=== PATIENT | female | born 1980 | race Caucasian/White ===

== ENCOUNTER 2020-06-06 10:01 | Outpatient (CLI) | payer BC, SELFPAY ==
[2020-06-06 20:32] LABS: SARS-CoV-2 RNA PCR Negative
== END 2020-06-06 10:02 | disposition home or self-care (01) ==
LOC: ANHCOVIDDT 10:04
PROVIDERS: PCP Family Medicine; Visit Provider Physician Assistant Medical
DX: R07.89 Other chest pain (principal); R19.7 Diarrhea, unspecified; R68.83 Chills (without fever); Z20.822 Contact with and (suspected) exposure to COVID-19
CPT/HCPCS: C9803; U0003; U0005

== ENCOUNTER 2022-01-20 01:40 | Day surgery (SDC) | payer OTHER, SELFPAY ==
[2022-01-20 06:25] VITALS: BP 117/59; PULSE 43; RESP 16; TEMP 36.4; O2SAT 100; BMI 21.4
[2022-01-20] MEDS: LACTATED RINGERS 1,000 ML 150 ML IV CONT (06:50)
--- NOTE | 2022-01-20 07:16 | P.PNAN_ITS ---
Anes - Initial Pre Proc Eval Procedure: Operation Date: 01/20/22 07:30 Proposed Procedures p Colonoscopy - Dariel Fletcher MD Date/Time: 01/20/22 07:16 Surgeon: Dariel Fletcher MD Pre Op Diagnosis: Rectal Pain Patient Data Age: 41 Gender: F Height: 1.68 m Weight: 60.4 kg Last Vital Signs Temp 97.5 F L 01/20/22 06:25 Pulse 43 L 01/20/22 06:25 Resp 16 01/20/22 06:25 BP 117/59 L 01/20/22 06:25 Pulse Ox 100 01/20/22 06:25 O2 Del Method Room Air 01/20/22 06:25 Allergies Allergy/AdvReac Type Severity Reaction Status Date / Time No Known Allergies Allergy Verified 01/20/22 06:34 Home Medications Medication Instructions Recorded Confirmed Type cholecalciferol (vitamin D3) 100 100 mcg PO DAILY 06/13/20 01/20/22 History mcg (4,000 unit) capsule multivitamin 1 tablet PO DAILY 06/13/20 01/20/22 History ferrous sulfate 325 mg (65 mg 325 mg PO DAILY 09/04/21 01/20/22 History iron) tablet (FeroSul) glucosamine sulfate 500 mg capsule 500 mg PO BID 01/02/22 01/20/22 History melatonin 1 mg tablet 1 mg PO HS PRN Insomnia 01/02/22 01/20/22 History vit B complex with C 300 300 tablet PO 1XD 01/02/22 01/20/22 History mg-calcium carbonate 150 mg calcium tablet (B-Complex Plus Vitamin C (and calcium)) Laboratory Tests 01/20/22 06:47 Beta HCG, Quant Pending Patient hx anesthesia problems: none Family hx anesthesia problems: none Results Review: All pre-operative results and documents have been reviewed as part of the pre- operative evaluation. 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 Family History Family History Father Family history of hypercholesterolemia Hypertension Grandparent Hypertension Family history of cardiovascular disease Carcinoma of colon Mother Family history of malignant neoplasm of breast in first degree relative Social History Social History Smoking status: Never smoker Alcohol intake: current Drinks per week: 1 Substance use: former Substance use type: marijuana Living arrangements: with family Spiritual care concerns: No Anes - Eval Final PreProcedure Day of Procedure 01/20/22 07:16 Patient weight: normal Heart: regular rate and rhythm Lungs: clear to auscultation Airway: Mallampati scale class II Neurological: alert and oriented Last oral intake: >/= 8 hours ASA classification: II Emergent: no Anesthetic plan: proceed Anesthesia type and monitoring: general GIVS and standard monitoring Results Review: All pre-operative results and documents have been reviewed as part of the pre- operative evaluation. Informed Consent: The patient's anesthetic plan and its attendant risks and benefits were discussed with the patient/family/POA. Questions were solicited and answers provided to the satisfaction of the patient/family/POA.
--- NOTE | 2022-01-20 07:26 | PM.HPGS ---
History of Present Illness History of Present Illness Consent: Risks, benefits, and alternatives have been discussed and questions answered. Patient agrees to proceed with procedure. Chief complaint: Rectal Pain Narrative: Sulema Manuel is a 41 year old female with sensation of rectal pressure, never had colonoscopy Review of Systems Constitutional: Constitutional: Denies headache(s) and Denies weakness Eyes: Eyes: Denies blurry vision ENT: Reports Normal hearing present, Denies headache(s) and Denies neck pain Cardiovascular: Cardiovascular: Denies chest pain and Denies dyspnea Respiratory: Respiratory: Denies dyspnea Gastrointestinal: Gastrointestinal: Reports no additional gastrointestinal complaints Genitourinary: Genitourinary: Denies dysuria Musculoskeletal: Musculoskeletal: Denies neck pain Integumentary/Breasts: Skin/Breast: Denies dry skin Neurologic: Reports Normal hearing present, Denies headache(s) and Denies weakness Psychiatric: Psychiatric: Denies anxiety Endocrine: Endocrine: Denies change in body appearance Hematologic/Lymphatic: Hematologic/Lymphatic: Denies easy bleeding Allergic/Immunologic: Allergic/Immunologic: Denies urticaria PMFSH Past Medical History Medical History (Updated 01/20/22 @ 07:27 by Dariel Fletcher MD) Hyperparathyroidism, unspecified 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 Rectal pressure Family History Family History Father Family history of hypercholesterolemia Hypertension Grandparent Hypertension Family history of cardiovascular disease Carcinoma of colon Mother Family history of malignant neoplasm of breast in first degree relative Social History Social History Smoking status: Never smoker Alcohol intake: current Drinks per week: 1 Substance use: former Substance use type: marijuana Living arrangements: with family Spiritual care concerns: No Meds Home Medications and Allergies Home Medications Medication Instructions Recorded Confirmed Type cholecalciferol (vitamin D3) 100 100 mcg PO DAILY 06/13/20 01/20/22 History mcg (4,000 unit) capsule multivitamin 1 tablet PO DAILY 06/13/20 01/20/22 History ferrous sulfate 325 mg (65 mg 325 mg PO DAILY 09/04/21 01/20/22 History iron) tablet (FeroSul) glucosamine sulfate 500 mg capsule 500 mg PO BID 01/02/22 01/20/22 History melatonin 1 mg tablet 1 mg PO HS PRN Insomnia 01/02/22 01/20/22 History vit B complex with C 300 300 tablet PO 1XD 01/02/22 01/20/22 History mg-calcium carbonate 150 mg calcium tablet (B-Complex Plus Vitamin C (and calcium)) Allergies Allergy/AdvReac Type Severity Reaction Status Date / Time No Known Allergies Allergy Verified 01/20/22 06:34 Vital Signs Vital Signs - 24 hr 01/20/22 06:25 Temperature 97.5 F L Pulse Rate 43 L Respiratory Rate 16 Blood Pressure 117/59 L Pulse Oximetry 100 Oxygen Delivery Room Air Exam Const: General: comfortable and no acute distress HENMT: General nose exam: Normal nares present Eyes: General: appearance normal, both eyes and all related structures Neck: Neck: no JVD Resp: Auscultation: clear to auscultation bilaterally Cardio: Rate: regular rate Rhythm: regular rhythm GI: Inspection: non-distended GI Palp: Yes Soft to palpation Skin: General skin exam: normal color Neuro: General: gait normal Speech: normal speech Extrem: General: normal to inspection Psych: Mental Status: mental status grossly normal Assessment and Plan Assessment and plan (1) Rectal pressure: Code(s): R19.8 - Other specified symptoms and signs involving the digestive system and abdomen Status: Acute Assessment and Plan: colonoscopy
[2022-01-20 07:29] LABS: Beta HCG Quantitative < 2.39 mIU/ML
[2022-01-20 07:52] VITALS: BP 102/57; PULSE 54; RESP 16; O2SAT 100
[2022-01-20 08:02] VITALS: BP 104/59; PULSE 56; RESP 16; O2SAT 100
[2022-01-20 08:12] VITALS: BP 110/62; PULSE 56; RESP 16; O2SAT 100
== END 2022-01-20 08:33 | disposition home or self-care (01) ==
PROVIDERS: Anesthesiology; PCP Family Medicine; Visit Provider Internal Medicine Gastroenterology
PROC: 0DJD8ZZ Inspection of Lower Intestinal Tract, Via Natural or Artificial Opening Endoscopic (ICD-10-PCS; CPT 45378; principal; 2022-01-20 07:30)
DX: Z12.11 Encounter for screening for malignant neoplasm of colon (principal); K63.5 Polyp of colon; K62.89 Other specified diseases of anus and rectum; R19.8 Other specified symptoms and signs involving the digestive system and abdomen; E21.3 Hyperparathyroidism, unspecified; F12.90 Cannabis use, unspecified, uncomplicated
CPT/HCPCS: 45385; 36415; 84702; 88305; J2704; J7120

== ENCOUNTER 2022-03-24 17:40 | Outpatient (CLI) | payer OTHER, SELFPAY ==
[2022-03-24 18:14] LABS: Basophils Percent Auto 0.5 % (0.2-1.2); Eosinophils Absolute Auto 0.1 K/mm3 (0-0.3); Eosinophils Percent Auto 0.8 % (0-4.4); Hematocrit 41.3 % (37.0-47.0); Immature Granulocyte Absolute 0.01 K/mm3 (0.00-0.031); Immature Granulocyte Percent A 0.2 % (0-0.5); Lymphocytes Absolute Auto 2.13 K/mm3 (0.9-3.2); Mean Corpuscular HGB Conc 33.9 g/dl (32-36); Mean Corpuscular Hemoglobin 30.4 pg (26-34); Mean Corpuscular Volume 89.6 fl (80-100); Mean Platelet Volume 10.1 fl (7.4-10.4); Monocytes Absolute Auto 0.5 K/mm3 (0.1-0.6); Monocytes Percent Auto 8.7 % (2.6-8.5); Neutrophils Absolute Auto 3.3 K/mm3 (1.3-6.7); Neutrophils Percent Auto 54.8 % (45.5-73.1); Platelet Count Result 214 k/mm3 (150-375); Red Blood Count 4.61 M/mm3 (4.2-5.4); Red Cell Distribution Width 11.9 % (11.5-14.5); White Blood Count 6.1 K/mm3 (4.5-10.0)
[2022-03-24 18:28] LABS: Alanine Aminotransferase 35 U/L (6-35); Albumin Level 4.8 g/dL (3.5-5.1); Alkaline Phosphatase 42 U/L (38-126); Anion Gap 8 mmol/L (8-16); Aspartate Amino Transferase 36 U/L (14-36); Bilirubin,Total 0.4 mg/dL (0.2-1.3); Blood Urea Nitrogen 14 mg/dL (7-17); Calcium 9.2 mg/dL (8.4-10.2); Carbon Dioxide 30 mmol/L (22-30); Chloride 100 mmol/L (98-107); Cholesterol 206 mg/dL (0-200); Estimated Glomerular Filt Rate > 60; Glucose 92 mg/dL (65-110); HDL Direct 97 mg/dL; Potassium 3.9 mmol/L (3.4-5.0); Sodium 138 mmol/L (137-145); Triglycerides 59 mg/dL (<150)
[2022-03-24 18:39] LABS: LDL Cholesterol Direct 77 mg/dL
[2022-03-24 18:43] LABS: Vitamin D 25 Hydroxy 46.3 ng/mL
== END 2022-03-24 17:41 | disposition home or self-care (01) ==
LOC: ANHLAB 17:42
PROVIDERS: PCP Family Medicine; Visit Provider Nurse Practitioner Family
DX: Z01.818 Encounter for other preprocedural examination (principal); Z13.220 Encounter for screening for lipoid disorders; E55.9 Vitamin D deficiency, unspecified
CPT/HCPCS: 36415; 80053; 80061; 82306; 84443; 85025

== ENCOUNTER 2025-02-16 23:06 | Emergency (ER) | payer BC, SELFPAY ==
--- NOTE | ~2025-02-16 | CT_ITS ---
CT abdomen pelvis w con Clinical History: L flank pain, LLQ pain . Comparison: None Technique: Axial images lung bases to symphysis pubis 100 mL Omnipaque 350 Coronal, sagittal reformats CT images acquired with automatic exposure control for dose reduction DLP: 299 mGy-cm Findings: Lung bases: Clear. Visualized heart and pericardium: Unremarkable. Liver: Enlarged. Gallbladder: Unremarkable. Spleen: Unremarkable. Pancreas: Unremarkable. Adrenal glands: Unremarkable. Kidneys: Right kidney- No hydronephrosis. No renal stones. Left kidney- No hydronephrosis. 4 mm stone. Distal esophagus/stomach: Unremarkable. Small bowel loops: Normal caliber and wall thickness. Colon: Normal caliber and wall thickness. Normal RLQ appendix. Nodes: No enlarged nodes. Peritoneum: No ascites. No free air. Urinary bladder: Unremarkable. Uterus: IUD. One branch barely protruding extra serosal. Adnexa: No masses Bones: No acute bony abnormality. Soft tissues: Unremarkable. Aorta: No aneurysm or dissection. IVC: Unremarkable. Main portal vein/SMV/splenic vein: Patent. Findings conveyed via telephone by myself to Dr. Rivero in ED at 7:20 AM EST. IMPRESSION: 1. 4 mm stone left kidney. No hydronephrosis. 2. One branch of IUD protrudes/perforates extra serosal. Recommend gynecology consultation. Reviewed, dictated and finalized at location R.
[2025-02-16 23:58] VITALS: BP 117/56; PULSE 45; RESP 16; TEMP 36.6; O2SAT 100
[2025-02-17 00:13] LABS: Hematocrit 41.8 % (37.0-47.0); Hemoglobin 13.9 g/dL (12.0-15.0); Immature Granulocyte Percent A 0.4 % (0-0.5); Lymphocytes Absolute Auto 1.79 K/mm3 (0.9-3.2); Mean Corpuscular HGB Conc 33.3 g/dl (32-36); Mean Corpuscular Hemoglobin 29.6 pg (26-34); Mean Corpuscular Volume 88.9 fl (80-100); Nucleated Red Blood Cells Absolute Auto 0.000 K/mm3 (0.0-0.012); Nucleated Red Blood Cells Perc 0.0 % (0.0-0.2); Platelet Count Result 212 k/mm3 (150-375); Red Blood Count 4.70 M/mm3 (4.2-5.4); White Blood Count 5.2 K/mm3 (4.5-10.0)
[2025-02-17 00:32] LABS: Alanine Aminotransferase 48 U/L (6-35); Albumin Level 4.8 g/dL (3.5-5.1); Alkaline Phosphatase 54 U/L (38-126); Anion Gap 5 mmol/L (4-12); Aspartate Amino Transferase 45 U/L (14-36); Bilirubin,Total 0.4 mg/dL (0.2-1.3); Blood Urea Nitrogen 13 mg/dL (7-17); Calcium 9.9 mg/dL (8.4-10.2); Carbon Dioxide 30 mmol/L (22-30); Chloride 101 mmol/L (98-107); Estimated CRCL calculation 86 ml/min; Estimated Glomerular Filt Rate > 60; Glucose 92 mg/dL (65-110); Lipase 77 U/L (23-300); Potassium 3.7 mmol/L (3.4-5.0); Sodium 136 mmol/L (137-145); Total Protein 8.1 g/dL (6.3-8.2)
[2025-02-17 00:44] LABS: Add Urine Microscopic? NO; Appearance Urine Clear (Clear); Glucose Urine UA Negative (Negative); Leukocyte Esterase Ur Negative LEU/UL (Negative); Nitrate Urine Negative (Negative); Specific Grav Ur 1.002 (1.001-1.035)
--- OUTSIDE RECORDS SUMMARY | 2025-02-17 01:02 | XMS_ITS | Clinical Summary ---
Author Organization [facility] Address [address] [place] [address] Care Team Providers Care Analysis Internship Name Role Phone Vita Hill MD Unavailable [phone] Patrica Santos MD Primary Care Provider + Faina Dickey MS Unavailable Unavailable Allergies No known active allergies Medications multivitamin capsuleIndication s:Vitamin Deficiency Prevention Take 1 capsule by mouth with lunch Active cholecalciferol (VITAMIN D-3) 4,000 unit capsuleIndication s:Vitamin D Deficiency Take 0.001 capsules (4 Units total) by mouth with lunch Active bitrg-3-mkh-epa-d pa-fish oil 1,050-1,200 mg capsuleIndication s:Supplement Take 1 capsule by mouth with lunch Active calcium-magnesium 300-300 mg tabletIndications :Post-Menopausal Osteoporosis Prevention Take 1 tablet by mouth nightly Active blue-green algae, Spirulina, 500 mg tablet Take by mouth Active collagen/biotin/a scorbic acid (COLLAGEN 1500 PLUS C ORAL)Indications: Hair skin health Take 1 tablet by mouth with lunch Active melatonin 5 mg tabletIndications :Sleep Take 1 tablet (5 mg total) by mouth nightly as needed (Sleep) Once at night Active turmeric root extract 500 mg capsuleIndication s:Supplement Take 1 capsule by mouth with lunch Active apple cider vinegar 500 mg tabletIndications :Supplement Take 1 tablet by mouth with lunch Active coenzyme Q10 200 mg capsuleIndication s:Supplement Take 1 capsule (200 mg total) by mouth with lunch Active estradioL (VIVELLE-DOT) 0.1 mg/24 hrIndications:Oliverio gical menopause on hormone replacement therapy Place 1 patch on the skin 2 (two) times a week for 4 days 24 patch 3 5 08/09/19 26 Active Active Problems Problem Noted Date Diagnosed Date Inconclusive mammogram due to dense breasts 10/02 Premature ovarian failure 01/14/2024 Assessment & Plan (08/05/2024 3:41 PM CDT): We discussed some of the typical symptoms and risks associated with premature menopause. Premature surgical menopause is associated with abrupt estrogen loss and leads to both short-term and long-term effects. In the short term, vasomotor symptoms, sleep disruption, vaginal dryness and sexual dysfunction can develop. Longer term effects include decreased bone mineral density and an increased risk of osteoporosis as well as an elevated risk of cardiovascular disease. Additionally, surgical menopause is a risk factor for increased all cause mortality. We discussed that estrogen therapy is the most effective treatment for vasomotor symptoms (hot flashes and night sweats) and to prevent declines in bone health in this context and is likely cardioprotective. Non-hormonal therapies are an option for patients who have contraindications to HT or make a personal choice not to use HT. These therapies are not as effective as estrogen, however many may provide relief from vasomotor symptoms. The recommendations for hormone replacement therapy given premature menopause is to use physiologic doses of estrogen therapy until the average age of natural menopause onset, approximately age 52. She elected to proceed with: HT management. Vivelle 0.1mg BIW Rx sent to pharmacy. LNG IUD in place (since 03/2024) She was advised to allow 8 weeks to assess symptom response. [facility] Menonotes and ACOG handouts provided. Questions answered. Premature menopause 02/20/2023 Bradycardia 09/05/2022 BRCA2 gene mutation positive 06/10/2022 Family history of breast cancer 06/10/2022 Dense breast tissue on mammogram 06/10/2022 Encounter for screening mammogram for breast can cer 06/10/2022 Breast cancer screening, high risk patient 06/10 IUD check up 07/31/2020 Family history of BRCA gene positive 06/29/2020 Hyperparathyroidism 01/12/2014 Resolved Problems Problem Noted Date Diagnosed Date Resolved Date Postoperative visit 04/14/2024 10/19/19 25 Encounters Date Type Department Care Team Description 01/01/2025 Results Follow-Up [facility] [address] [place] [address] Fara Enriquez MD Dexa Axial Skeleton Bone Density 1 Or 2 Site 12/30/2024 Telephone [facility] Obstetrics and Gynecology [address] [place] [address] Harleen Marcial RN Test Results 12/02/2024 10:10 AM CDT Clinical Support [facility] Bone Health [address] [place] [address] Postmenopausal (Primary Dx); Surgical menopause on hormone replacement therapy; Osteopenia of spine from Last 3 Months Immunizations Immunization Administration Dates Next Due Influenza, Quadrivalent, Lauren l Culture-based MDCK, Antibiotic Free, Intramuscular 02/11/2020 Influenza, Quadrivalent, Rec ombinant, Egg Free, Preservative Free, Intramuscular 02/06/2022 Moderna SARS-CoV-2 Monovalent Vaccination (12+ Y RS) 06/04/2020 Pfizer SARS-CoV-2 Monovalent Vaccination (12+ Yrs) PURPLE 07/20/2020 Tdap 09/04/2021,04/04/2016 Surgical History Surgery Date Site/Laterality Comments OTHER SURGICAL HISTORY 05/04/2015 - 05/03/2016 : Spontaneaous PARATHYROIDECTOMY parathyroid nodule: parathyroidectomy VAGINAL DELIVERY 05/04/2009 - 05/03/2010 : VAGINAL DELIVERY 05/04/2006 - 05/03/2007 : COLONOSCOPY VAGINAL DELIVERY 05/04/2016 - 05/03/2017 LASIK 04/22/22 WISDOM TOOTH EXTRACTION OOPHORECTOMY 05/04/2023 - 05/03/2024 Medical History Medical History Date Comments Thyroid nodule parathyroid nodu le; Outcome: benign ; Outco me: 8lb(s) 1 oz Male ; Outco me: 7lb(s) 11 oz Male 2016 - Misse d AB Osteoporosis Hyperlipidemia Motion sickness Family History Medical History Relation Name Comments Colon cancer Maternal Grandmother Alix Cancer, colon; BRCA 2 Maternal cousin 1 male cousin no breast ca BRCA 2 Maternal cousin 2 Richelle s/p RRMs BRCA 2 Mother no breast ca BRCA 2 Mother's Sister 1 Venessa s/p RRMs BRCA2 Negative Mother's Sister 2 Sabine BRCA2 Negative Mother's Sister 3 Rosa Brain Tumor Son Madan Ovarian cancer Neg Hx Pancreatic cancer Neg Hx Prostate cancer Neg Hx Thyroid cancer Neg Hx Relation Name Status Comments Father Alive Maternal Grandfather Wally Maternal Grandmother Alix Maternal cousin 1 male cousin Alive Maternal cousin 2 Richelle Alive Mother Alive Mother's Sister 1 Venessa Alive Mother's Sister 2 Sabine Alive Mother's Sister 3 Rosa Alive Sister Natalie Alive Son Madan Alive Social History Tobacco Use Types Packs/Day Years Used Date Smoking Tobacco: Never Passive Smoke Exposure: Never Smokeless Tobacco: Never Tobacco Cessation:Counseling Given: Not Answered Alcohol Use Standard Drinks/Week Comments No 0 (1 standard drink = 0.6 oz pur e alcohol) Humiliation, Afraid, Rape, and Kick questionnair e Answer Date Recorded Fear of Current or Ex-Partner No Emotionally Abused No 02/03/2019 Physically Abused No 02/03/2019 Sexually Abused No 02/03/2019 Social Connection and Isolation Panel Answer Date Recorded Frequency of Communication w ith Friends and Family More than three times a week 02/03/2019 Frequency of Social Gatherin gs with Friends and Family More than three times a week 02/03/2019 Attends [employer] Services Never 02/03 Active Member of Clubs or Organizations No 02/03/2019 Attends Club or Organization Meetings Never 02/03/2019 Marital Status 02/03/2019 AUDIT-C Answer Date Recorded Q1: How often do you have a drink containing alcohol? Monthly or less 08/05/2024 Q2: How many drinks containi ng alcohol do you have on a typical day when you are drinking? Patient does not drink Q3: How often do you have si x or more drinks on one occasion? Never 08/05/2024 [facility] of Occupat ional Health - Occupational Stress Questionnaire Answer Date Recorded Feeling of Stress To some extent 02/03/2019 Exercise Vital Sign Answer Date Recorde d Days of Exercise per Week 6 days 2018 Minutes of Exercise per Session 60 min 02/03/2019 Personal Safety Answer Date Recorded Have you ever been in or are you currently in a harmful physical or emotional relationship or is someone making you feel afraid or unsafe? Denies 03/29/2024 Comments No Sex and Gender Information Value Date Recorded Sex Assigned at Not on file Legal Sex Female 2:48 AM FRONT DESK HOST Gender Identity Female 03/20/2020 2:12 PM FRONT DESK HOST Sexual Orientation Straight 03/20/2020 2: 12 PM FRONT DESK HOST Obstetrics History Para Term AB IAB SAB Ectopic Multiple Livin g Live Births 4 3 3 1 1 3 3 Date Outcome GA Total Labor Labor/2nd/3rd Weight Sex Type Anes PTL Deya A1 A5 Name Clin 2006 Term M Vag-S pont Living 2009 Term M Vag-S pont Living 2015 SAB SAB 2016 Term F Vag-S pont Living Last Filed Vital Signs Vital Sign Reading Time Taken Comments Blood Pressure 132/82 10/18/2024 9:22 AM CDT Pulse 64 10/18/2024 9:22 AM CDT Temperature 36.3 C (97.3 F) 10/18/2024 9:22 AM CDT Respiratory Rate 18 10/18/2024 9:22 AM CDT Oxygen Saturation 100% 10/18/2024 9:22 AM CDT Inhaled Oxygen Concentration - - Weight 61.1 kg (134 lb 12.8 oz) 10/18/2024 9:22 AM CDT Height 165.1 cm (5' 5) 08/05/2024 2:49 PM CDT Body Mass Index 22.43 08/05/2024 2:49 PM CDT Plan of Treatment Health Maintenance Due Date Last Done Comments Depression Screening 1980 Hepatitis C Screening 1980 Varicella Vaccines (1 of 2 - 13+ 2-dose series) 1993 Hepatitis B Screening 1998 HPV Vaccines (1 - 3-dose SCDM series) 2007 Cervical Cancer Screening 02/14/2023 02/14/2022, Regular Well Visit/Exam 18-64 02/14/2023 02/14/2022, 03/22/2021, 03/21/2020, Additional history exists Covid-19 Vaccine ( season) 2025 03/29/2021, 07/20/2020, 06/04/2020 Influenza Vaccine (#1) 2025 02/06/2022, 2019 Breast Cancer Screening-Mammogram 04/14/2025 04/14/2024, 04/07/2023, 03/22/2021, Additional history exists DTaP/Tdap/Td Vaccine (3 - Td or Tdap) 09/05/2031 09/04/2021, 04/04/2016 Pneumococcal vaccine <65 Aged Out No longer eligible based on patient's age to complete this topic Procedures Procedure Name Priority Date/Time Associated Diagnosis Comments DEXA AXIAL SKELETON BONE DENSITY 1 OR MORE SITES Schedule Routine, Read Routine (OP Routine) 12/02/2024 10:43 AM CDT Surgical menopause on hormone replacement therapy SCREENING MAMMOGRAM BILATERAL W AARON Schedule Routine, Read Routine (OP Routine) 04/14/2024 3:48 PM FRONT DESK HOST Encounter for screening mammogram for breast cancer Breast cancer screening by mammogram PAP AND HIGH RISK HPV, REFLEX TO GENOTYPING Routine 02/14/2022 3:45 PM CDT Well woman exam from Last 3 Months or Most Recently Relevant to Health Maintenance Results * Dexa Axial Skeleton Bone Density 1 Or 2 Site (12/02/2024 10:43 AM CDT) Anatomical Region Laterality Modality Body N/A Radiographic Marylou ging Narrative 12/02/2024 10:44 AM CDT Patient Name: Amadeo Forbes Date of : 1980 Date of scan: 12/02/2024 Bone mineral density was performed on a Hologic Discovery Densitometer. Based on machine cross-calibration and precision studies the least significant changes of this densitometer is 0.024 g/cm2 at the spine, 0.020 g/cm2 at the total proximal femur, and 0.014g/cm2 at the forearm. HISTORY: This is a 44 y.o. postmenopausal female with a history of low bone mass. She reports that she has never smoked. She has never been exposed to tobacco smoke. She has never used smokeless tobacco. Currently on treatment with calcium, vitamin D, and hormone replacement therapy. INDICATIONS: Menopause status and history of low bone mass. FINDINGS: BONE MINERAL DENSITY OF THE LUMBAR SPINE Bone Mineral Density (BMD) of the lumbar spine was measured from L1-L4 and the average density was calculated to be 0.848 gm/cm2. This corresponds to a T-score (standard deviations from the mean of young adults) of -1.8. There is no previous study available for comparison. BONE MINERAL DENSITY OF THE PROXIMAL FEMUR Bone Mineral Density (BMD) of the left hip total was found to be 0.928 gm/cm2. This corresponds to a T-score standard deviations from the mean of young adults of -0.1. Femoral neck is 0.863 gm/cm2 with a T-score (standard deviations from the mean of young adults) of 0.1. There is no previous study available for comparison. SUMMARY: Bone mineral density shows evidence of low bone mass at the lumbar spine and moderately increased fracture risk (Osteopenia). ADDITIONAL COMMENTS: Postmenopausal Women and Men Over 50: Diagnostic criteria: Osteoporosis: BMD at or below -2.5 T-score; Osteopenia (low bone mass): BMD between -1.0 and -2.5 T-score. If the patient has a history of a fragility fracture, a fracture that occurred with trauma equivalent to a fall from a standing position or less, then the diagnosis is osteoporosis regardless of bone density. The history and data sections of the bone mineral density scan were prepared by Teresa Alcala) SCOT who is accredited by the International Society of Clinical Densitometry. The overall patient assessment and scan interpretation were performed by Izabella Feng M.D. who is certified by the International Society of Clinical Densitometry. [id number] us Sonia Carvajal MD IMDavid DXA PROCEDURES Final Resu lt * Screening Mammogram Bilateral W Aaron (04/14/2024 3:48 PM FRONT DESK HOST) Anatomical Region Laterality Modality Breast Bilateral Mammography 04/15/2024 11:3 1 AM FRONT DESK HOST Impressions 04/15/2024 11:31 AM FRONT DESK HOST No evidence of malignancy in either breast. FINAL ASSESSMENT: BI-RADS Category 1: Negative. RECOMMENDATION: 1. Annual screening mammography is recommended. 2. If supplemental screening is desired for dense breast tissue, MRI would be recommended. Electronically signed by: LEXY PIPER MD Narrative 04/15/2024 11:31 AM FRONT DESK HOST EXAMINATION: BILATERAL SCREENING MAMMOGRAM COMPARISON: All prior mammograms dating back to 2019. TECHNIQUE: Full-field 2D and digital breast tomosynthesis (DBT) images were obtained. CAD was utilized. BREAST PARENCHYMAL COMPOSITION: The breasts are heterogenously dense, which may obscure small masses. FINDINGS: There is no suspicious mass, calcification, or distortion in either breast. Vita Hill MD IMG MAMMO PROCEDURES Final Result * Pap and High Risk HPV, reflex to Genotyping (02/14/2022 3:45 PM CDT) Thin prep (Pap test) 02/14/2022 3:45 PM CDT 02/19/2022 2:43 PM CDT Narrative PATHOLOGY [facility] - 02/25/2022 11:50 AM CDT EPIC results best viewed via link to PDF [address] [address] Tele: Tanisha Benavides MD - Chemical Recovery Operator CYTOLOGY REPORT Note to Patients: This report may contain a detailed description of human tissue sent by a health care provider to the laboratory for pathologic evaluation. The content of this report is essential for diagnosis and may provide important critical findings. This information may be unfamiliar to patients to review without a medical professional present. It is advised that the patient review this report in the presence of a health care provider who can answer questions and explain the details. Patient Name: AMADEO FORBES Address: [address] [place] [address] Gender: F : 1980 (Age: 41) Service: Location: [facility] #: [id number] Patient Type: [facility] [place] SPECIMEN Taken: 02/14/2022 Reported: 02/25/2022 Physician(s): KAPIL Bethea FINAL DIAGNOSIS: Specimen Type: - ThinPrep Pap and HPV w/ reflex Genotyping Statement of Specimen Adequacy: Source: Cervical/Endocervical - Satisfactory for interpretation - Endocervical/Transformation zone component absent or insufficient - Case screened using computer assisted imaging technology and manually re- screened by a general education instructor. General Categorization: - Negative for intraepithelial lesion or malignancy 02/25/2022 11:50Rosemary Malone M.S., EARLE (ASCP) Report Reviewed and Electronically Signed By Rosemary Malone M.S., EARLE (ASCP)Clerical Data Follow A; [id number] DIAGNOSIS COMMENT: Ancillary Testing: HPV High Risk Group (16, 18, 31, 33, 35, 39, 45, 51, 52, 56, 58, 59, 66 and 68) - Not Detected Reference Range: Not Detected This test was performed using the ERNIE 4800 CLINICAL DIAGNOSIS AND HISTORY Contraceptive History: IUD REPORT IMAGES AND/OR SCANNED DOCUMENTS ONLY VIEWABLE IN PDF FORMAT The Pap test is a screening test used to aid in the detection of cervical cancer and its precursors. It should not be the sole means by which malignant and premalignant lesions are diagnosed. Both false negative and false positive results may occur. It also has poor sensitivity for the detection of endometrial lesions and should not be used to evaluate suspected endometrial abnormalities. For these reasons it is most important to obtain Pap tests at regular intervals, as recommended by your physician or nurse practitioner. Radha Brandt NP LAB CYTOLOGY ORDERABLES [facility] al Result PATHOLOGY [facility] Laboratory Receiving [address] [place] [address] from Last 3 Months or Most Recently Relevant to Health Maintenance Insurance [facility]Good [facility] PPO BLUE ACCESS CHOICE [place] Care Teams Analysis Internship Relationship Specialty Start Date End Date Patrica Santos MD [address] DIV [facility]Y, [address] [address] PCP - General Family Medicine 05/25/22 LizVita mauricio MD [address] DIV MEDICAL ONCOLOGY, [address] [address] Surgeon Breast Surgery 05/08/22 Faina Dickey, MS 08/20/22
--- OUTSIDE RECORDS SUMMARY | 2025-02-17 01:02 | XMS_ITS | Clinical Summary ---
Author Organization [facility] Address [address] [place] [address] Care Team Providers Care Electroencephalogram Technologist Name Role Phone Unavailable Primary Care Provider Unavailabl e Source Comments [facility],non-owned Affiliates and Associated Physician Practices is amultiple site organization consisting of ambulatory clinics and hospital sitesin [place], [place], [place] and [place]. This disclosure is being madepursuant to the Care Everywhere program and may not contain all information available regarding this patient. Last updated 18.[facility] [employer] Social History Tobacco Use Types Packs/Day Years Used Date Smoking Tobacco: Never Assessed Comments Unknown Sex and Gender Information Value Date Recorded Sex Assigned at Not on file Legal Sex Female 10:15 AM CDT Gender Identity Not on file Sexual Orientation Not on file Plan of Treatment Health Maintenance Due Date Last Done Comments LIPID TESTING 1980 MAMMOGRAM 1980 HIV SCREENING 1995 HEPATITIS C SCREENING 06/12/1998 DTAP/TDAP/TD VACCINES (1 - Tdap) 1999 HEPATITIS B VACCINE (1 of 3 - 19+ 3-dose series) 1999 HPV VACCINE (1 - 3-dose SCDM series) 2007 DEPRESSION SCREENING 05/04/2024 COVID-19 VACCINE (1 - 2023-2 5 season) 2025 INFLUENZA VACCINE (#1) 2025 ZOSTER VACCINE (1 of 2) 2030 HIB VACCINE Aged Out No longer eligi ble based on patient's age to complete this topic MENINGOCOCCAL (Group B) VACC INE SHARED DECISION-MAKING Aged Out No longer eligibl e based on patient's age to complete this topic MENINGOCOCCAL GROUPS A/C/Y/W VACCINE Aged Out No longer eligible b ased on patient's age to complete this topic PNEUMOCOCCAL VACCINE Aged Out No long er eligible based on patient's age to complete this topic Insurance [employer]
--- OUTSIDE RECORDS SUMMARY | 2025-02-17 01:02 | XMS_ITS | Clinical Summary ---
Author Organization [email or web address] Address [address] [place] [address] Care Team Providers Care Aircraft Stress Analyst Name Role Phone Ricardo Santos MD Primary Care Provider [phone] Allergies No known active allergies Medications Vit 00-Zxgt-[id number]-DSS (ADVANCED ) 90-1-50 mg Oral Tab Take 1 Tab by mouth daily. Active Besifloxacin (Besivance) 0.6 % Drops, Suspension Instill one drop into left eye three times daily beginning two days before surgery. 5 mL 03/18/20 22 Active bromfenac (Prolensa) 0.07 % Drops solution Instill one drop into left eye once daily beginning two days before surgery. 3 mL 03/18/20 22 Active loteprednol etabonate (Lotemax SM) 0.38 % Drops, Gel Instill one drop into left eye three times daily beginning after surgery. 5 Gram 03/18/20 22 Active hydrocortisone acetate (ANUSOL-HC) 25 mg Suppository Unwrap and insert 1 Suppository (25 mg) rectally 1 time daily as needed. 12 Suppository 2 1:19 PM INDEPENDENT LIVING SPECIALIST 03/24/20 22 Active prednisoLONE acetate (PRED FORTE) 1 % suspension Administer 1 drop in the left eye twice daily for 7 days, then 1 drop in the left eye once daily for 7 days. 5 mL 2 4:07 PM INDEPENDENT LIVING SPECIALIST 04/19/20 22 Active methylPREDNISol one (MEDROL DOSPACK) 4 mg Tablets, Dose Pack TAKE BY MOUTH DIRECTED ON PACKAGE 21 Tablet 05/25/19 23 Active hydrocortisone acetate (ANUSOL-HC) 25 mg Suppository Insert 1 Suppository (25 mg) rectally 1 time daily as needed for hemorrhoids. 12 Suppository 3 7:35 PM CDT 11/19/19 23 Active hydrocortisone acetate (ANUSOL-HC) 25 mg Suppository Insert 1 Suppository (25 mg) rectally 1 time daily as needed for hemorrhoids. 12 Suppository 5 5:46 PM INDEPENDENT LIVING SPECIALIST 05/10/19 25 Active busPIRone (BUSPAR) 5 mg tablet Take 1 Tablet (5 mg) by mouth nightly as needed for anxiety. 30 Tablet 05/12/19 25 Active Sodium Fluoride (PreviDent 5000 Booster Plus) 1.1 % Paste BRUSH WITH A PEA SIZED AMOUNT BEFORE BEDTIME. DO NOT EAT, DRINK, OR RINSE FOR 30 MINUTES AFTER USE. 100 mL 3 5 2:38 PM CDT 05/26/19 25 Active estradioL 0.1 mg/[address] 1 patch on the skin 2 (two) times weekly. 24 Patch 3 5 4:10 PM CDT 08/06/19 25 Active ibuprofen (MOTRIN) 800 mg tablet Take one tablet (800mg) by mouth every 8 hours as needed for pain 20 Tablet 5 12:21 PM CDT 01/13/20 25 Active HYDROcodone-jacob taminophen (NORCO) 5-325 mg tablet Take one or two tablets by mouth every 6 hours as needed for pain 12 Tablet 5 12:21 PM CDT 01/13/20 25 Active ibuprofen (MOTRIN) 800 mg tablet Take 1 Tablet (800 mg) by mouth every 8 hours as needed for pain. 20 Tablet 5 6:43 PM CDT 01/20/20 25 Active amoxicillin (AMOXIL) 875 mg tablet Take one tablet (875 mg) by mouth twice daily until all are taken 14 Tablet 5 4:10 PM CDT 02/17/20 25 Active amoxicillin (AMOXIL) 875 mg tablet Take one tablet by mouth twice daily until all are taken 14 Tablet 5 12:21 PM CDT 01/13/20 25 025 Discontinu ed(Reorder ) amoxicillin (AMOXIL) 875 mg tablet Take 1 Tablet (875 mg) by mouth 2 times daily for 7 days. 14 Tablet 5 6:43 PM CDT 01/20/20 25 025 amoxicillin (AMOXIL) 875 mg tablet Take 1 tablet by mouth twice daily until all tablets are taken 14 Tablet 5 2:24 PM CDT 02/10/20 25 025 Discontinu ed(Reorder ) Encounters Date Type Department Care Team Description 12/06/2024 External Device Data [facility] ABSTRACTION Provider, Abstract from Last 3 Months Social History Tobacco Use Types Packs/Day Years Used Date Smoking Tobacco: Never Comments Unknown Sex and Gender Information Value Date Recorded Sex Assigned at Not on file Legal Sex Female 6:00 AM INDEPENDENT LIVING SPECIALIST Gender Identity Not on file Sexual Orientation Not on file Occupation Industry Job Start Date Job End Date Not on file Not on file Not on file Not on file Last Filed Vital Signs Vital Sign Reading Time Taken Comments Blood Pressure - - Pulse - - Temperature - - Respiratory Rate - - Oxygen Saturation - - Inhaled Oxygen Concentration - - Weight 56.7 kg (125 lb) 03/25/2011 9:54 AM INDEPENDENT LIVING SPECIALIST Height - - Body Mass Index - - Plan of Treatment Health Maintenance Due Date Last Done Comments DTAP/TDAP/TD VACCINES (1 - Tdap) 1999 HEPATITIS B VACCINES (1 of 3 - 19+ 3-dose series) 06/04 HPV/Cotest (21-29) 2001 HPV VACCINES (1 - 3-dose SCDM series) 2007 CERVICAL CANCER SCREENING 2010 HPV/Cotest (30-65) 2010 PAP SMEAR 2010 BREAST CANCER SCREENING 2020 INFLUENZA VACCINE (#1) 2024 Insurance [facility] [employer] PPO [id number] RX PRIME THERAPEUTICS Commercial RX [employer] (INTERNAL) [facility] Care Teams Aircraft Stress Analyst Relationship Specialty Start Date End Date Ricardo Santos MD PCP - General Family Practice 08/06/10
--- OUTSIDE RECORDS SUMMARY | 2025-02-17 01:02 | XMS_ITS | Encounter Summary ---
Author Organization [facility] Address [address] [place] [address] Care Team Providers Care Mining Consultant Name Role Phone Unavailable Primary Care Provider Unavailabl e Encounter Details Date Type Department Care Team (Late st Contact Info) Description 11/17/2019 Lab Requisition [facility] Derm[facility] Lab [address] [place] [address] Christel Norton MD [address] [facility] [address] [place] [address] Social History Tobacco Use Types Packs/Day Years Used Date Smoking Tobacco: Never Assessed Comments Unknown Sex and Gender Information Value Date Recorded Sex Assigned at Not on file Legal Sex Female 10:15 AM CDT Gender Identity Not on file Sexual Orientation Not on file documented as of this encounter Plan of Treatment Not on file documented as of this encounter Procedures Procedure Name Priority Date/Time Associated Diagnosis Comments DERMATOPATHOLOGY Routine 11/16/2019 12:0 0 AM CDT documented in this encounter Results * DERMATOPATHOLOGY (11/16/2019 12:00 AM CDT) Case Report Dermatopathology Report Case: [id number] Authorizing Provider: Christel Norton MD Collected: 11/16/2019 12:00 AM Ordering Location: [facility] Derm[facility] Lab Received: 11/17/2019 08:36 AM Pathologist: Shruthi Cassidy MD Specimens: A) - Skin, left neck B) - Skin, right inner arm 0 4:58 PM CDT DERMATOPATHOLOGY LABORATORY Final Diagnosis Specimen A. SKIN, left neck: INTRADERMAL MELANOCYTIC NEVUS (D22.4) Specimen B. SKIN, right inner arm: INTRADERMAL MELANOCYTIC NEVUS (D22.61) 0 4:58 PM CDT DERMATOPATHOLOGY LABORATORY at 1658 CDT Clinical History A-B: R/O nevus, irritated 0 4:58 PM CDT DERMATOPATHOLOGY LABORATORY Gross Description Specimen A: Received is one formalin filled container labeled with the patient's name and designated left neck. The specimen consists of a shave biopsy measuring 6x3x1 mm. Jar 0. Specimen B: Received is one formalin filled container labeled with the patient's name and designated right inner arm. The specimen consists of a shave biopsy measuring 4x3x1 mm. Jar 0. 0 4:58 PM CDT DERMATOPATHOLOGY LABORATORY Microscopic Description Specimen A. SKIN, left neck: There are nests of cytologically bland melanocytes within the dermis that mature with depth. Specimen B. SKIN, right inner arm: There are nests of cytologically bland melanocytes within the dermis that mature with depth. 0 4:58 PM CDT DERMATOPATHOLOGY LABORATORY Disclaimer An external and internal positive and negative controls are appropriate for the histochemical, immunohistochemical and immunofluorescence stain(s) in this case (if any), except where stated explicitly. The performance characteristics of the stain(s) cited in this report were developed and its performance characteristic determined by the Dermatopathology Laboratory at [facility], directed by Dr. Martha Cassidy. These tests need not be, and therefore are not, approved by the [place] Food and Drug Administration. The tests are used for clinical purposes. Billing Codes Specimen Charges Stain Charges [id number] 1 1 0 4:58 PM CDT DERMATOPATHOLOGY LABORATORY Embedded Images 0 4:58 PM CDT DERMATOPATHOLOGY LABORATORY Pathology/Cytology TISSUE SPECIMEN FROM SKIN / Unknown 11/16/2019 11/17/2019 8:36 AM CDT Miscellaneous samples (specimen) TISSUE SPECIMEN FROM SKIN / Unknown 11/16/2019 11/17/2019 8:36 AM CDT us Christel Norton MD LAB - PATHOLOGY/CYTOLOGY OR DERABLES Final Result DERMATOPATHOLOGY LABORATORY [facility] - Department of Dermatology [employer] J[employer] Supervisor [place]/[address] [place] [address], [place] [phone] documented in this encounter Visit Diagnoses Not on filedocumented in this encounter
--- OUTSIDE RECORDS SUMMARY | 2025-02-17 01:02 | XMS_ITS | Clinical Summary ---
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 Gender Identity Not on file Sexual Orientation Not on file Plan of Treatment Health Maintenance Due Date Last Done Comments Hepatitis C Virus (HCV) Screening 1980 TdaP Immunization 1980 Hepatitis B Immunization (1 of 3 - 19+ 3-dose series) 1999 Pap Smear 2001 Human Papillomavirus (HPV) Immunization (1 - 3-dose SCDM series) 2007 Cervical Cancer Screening (CCS) 2010 HPV/Cotest 2010 Influenza Immunization (#1) 2025 SARS-COV-2 Immunization ( season) 2025 Respiratory Syncytial Virus (RSV) Immunization (Adult) (1 - 1-dose 75+ series) 2055 Meningococcal Immunization (ACWY) Aged Out No longer eligible based on patient's age to complete this topic Pneumococcal Immunization Combined Aged Out No longer eligible based on patient's age to complete this topic Rotavirus Immunization Aged Out No lo nger eligible based on patient's age to complete this topic
--- NOTE | 2025-02-17 01:22 | ED.ABDPAIN ---
HPI - Abdominal Pain General Chief Complaint: Abdominal Pain <GILBERTO Khanna Last Filed: 02/17/25 01:25> Stated Complaint: Left sided Abdominal Pain <GILBERTO Khanna Last Filed: 02/17/25 01:25> Time Seen by Provider: 02/17/25 01:02 <GILBERTO Khanna Last Filed: 02/17/25 01:25> Source: patient <GILBERTO Khanna Last Filed: 02/17/25 01:25> Mode of arrival: ambulatory <GILBERTO Khanna Last Filed: 02/17/25 01:25> Limitations: no limitations <GILBERTO Khanna Last Filed: 02/17/25 01:25> History of Present Illness HPI narrative: Patient is a 44-year-old female who presents the ED with report of left-sided abdominal pain. Patient reports having pain throughout her left lower abdomen, radiating to her left flank, left lower back. Patient reports pain began around 10:00 p.m. tonight suddenly. Denies history of similar pain. Denies history of kidney stones. History of prior bilateral oophorectomy. Attempted taking simethicone tonight, but denied improvement. Denies nausea, vomiting, diarrhea, constipation, fevers, dysuria, hematuria. <GILBERTO Khanna Last Filed: 02/17/25 01:25> Related Data Home Medications: Home Medications ?Medication ?Instructions ?Recorded ?Confirmed ?Last Taken ?Type cholecalciferol (vitamin D3) 100 100 mcg PO DAILY 06/13/20 06/23/24 Unknown History mcg (4,000 unit) capsule multivitamin 1 tablet PO DAILY 06/13/20 06/23/24 Unknown History glucosamine sulfate 500 mg capsule 500 mg PO BID 01/02/22 06/23/24 Unknown History melatonin 1 mg tablet 1 mg PO HS PRN Insomnia 01/02/22 06/23/24 Unknown History vit B complex with C 300 300 tablet PO 1XD 01/02/22 06/23/24 Unknown History mg-calcium carbonate 150 mg calcium tablet (B-Complex Plus Vitamin C (and calcium)) <Nidhi Chawla PA-C - Last Filed: 02/17/25 01:25> Allergies/Adverse Reactions: Allergies Allergy/AdvReac Type Severity Reaction Status Date / Time No Known Allergies Allergy Verified 06/23/24 16:52 <Nidhi Chawla PA-C - Last Filed: 02/17/25 01:25> Review of Systems Review of Systems: All systems reviewed & are unremarkable except as noted in HPI. 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 <Nidhi Chawla PA-C - Last Filed: 02/17/25 01:25> Surgical History Surgical History: Surgical History History of salpingo-oophorectomy bilat <Nidhi Chawla PA-C - Last Filed: 02/17/25 01:25> Family History Family History: Family History Father Family history of hypercholesterolemia Hypertension Grandparent Hypertension Family history of cardiovascular disease Carcinoma of colon Mother Family history of malignant neoplasm of breast in first degree relative <Nidhi Chawla PA-C - Last Filed: 02/17/25 01:25> Social History Social History: Social History Smoking status: Never smoker Alcohol intake: current Drinks per week: 1 Substance use: former Substance use type: marijuana Lack of Transportation: No Lack of Food: Never True Current Housing: I Have Housing Concerned About Future Housing: No Difficulty Paying Gas/Electric Bills: No Difficulty Paying for Meds: No Currently Unemployed: No Education: Master's Degree or Higher Difficulty w/ Childcare or Family Care: No Living arrangements: with family Occupation/Education: occupation Gender identity (if verbalized by the patient): Female Spiritual care concerns: No Agree to blood products: Yes <Nidhi Chawla PA-C - Last Filed: 02/17/25 01:25> Exam Narrative: GENERAL: Well appearing, well-nourished, non-toxic, in no acute distress. HEAD: Normocephalic, atraumatic. RESPIRATORY: Airway patent, respirations nonlabored. Clear to auscultation bilaterally, no rales, rhonchi, wheezing. CARDIOVASCULAR: Regular rate and rhythm without murmurs, rubs, or gallops. ABDOMINAL: Soft, mild tenderness palpation left lower quadrant, left lateral abdomen, left CVA region, nondistended. Normoactive BS. MUSCULOSKELETAL: Moves all extremities. No gross deformities. SKIN: Warm, dry, normal color. NEURO: A&O X3. Speech clear. Cranial nerves II-XII grossly intact. Steady gait. No ataxic movements. PSYCHIATRIC: Appropriate mood and affect. Normal interaction. <Nidhi Chawla PA-C - Last Filed: 02/17/25 01:25> Course Course Emergency Course: Patient care signed over by previous provider pending CT scan for final disposition. CT scan shows 3 mm left-sided lower pole renal stone consistent with patient's physical exam findings and presentation consistent with renal colic. Patient is sent home with prescriptions for pain medications and Urology follow-up. Laboratory studies urinalysis unremarkable. Later this morning at 6:24 a.m. I was called by the morning radiologist who over read a statrad read informing me that patient has a branch of her IUD protruding into the uterine wall as another incidental finding in addition to her kidney stone diagnosis. I called patient's cell phone number and left a voicemail to call the ER back to get this information. I left the charge nurse with a written recount of this encounter to related to the next physician in case she calls back after my shift is over at 7. <Frank Long MD - Last Filed: 02/17/25 06:26> Vital Signs Vital signs: Vital Signs Temperature 36.6 C 02/16/25 23:58 Pulse Rate 45 L 02/16/25 23:58 Respiratory Rate 16 02/16/25 23:58 Blood Pressure 117/56 L 02/16/25 23:58 Pulse Oximetry 100 02/16/25 23:58 Temperature 36.6 C 02/16/25 23:58 Pulse Rate 45 L 02/17/25 05:11 Respiratory Rate 18 02/17/25 05:11 Blood Pressure 101/60 02/17/25 05:11 Pulse Oximetry 100 02/17/25 05:11 <GILBERTO Khanna Last Filed: 02/17/25 01:25> Vital Signs Temperature 36.6 C 02/16/25 23:58 Pulse Rate 45 L 02/16/25 23:58 Respiratory Rate 16 02/16/25 23:58 Blood Pressure 117/56 L 02/16/25 23:58 Pulse Oximetry 100 02/16/25 23:58 Temperature 36.6 C 02/16/25 23:58 Pulse Rate 45 L 02/17/25 05:11 Respiratory Rate 18 02/17/25 05:11 Blood Pressure 101/60 02/17/25 05:11 Pulse Oximetry 100 02/17/25 05:11 <Frank Long MD - Last Filed: 02/17/25 06:26> MDM - Abdominal Pain MDM Narrative Medical decision making narrative: Patient presented to ED with left lower abdominal pain, onset around 10:00 p.m. tonight. No history of similar pain. Vital signs stable upon arrival. Patient in no acute distress. Laboratory studies are unremarkable. Cbc without leukocytosis. Minimal transaminitis. CMP otherwise unremarkable. UA is clear. CT scan of abdomen/pelvis was obtained <GILBERTO Khanna Last Filed: 02/17/25 01:25> Medical Records Attestation: I reviewed the patient's medical records. <GILBERTO Khanna Last Filed: 02/17/25 01:25> Lab Data Attestation: I reviewed the patient's lab results. <GILBERTO Khanna Last Filed: 02/17/25 01:25> Result diagrams: 02/17/25 00:08 02/17/25 00:08 <Nidhi Chawla PA-C - Last Filed: 02/17/25 01:25> Labs: Lab Results 02/17/25 02/17/25 Range/Units 00:08 00:32 WBC 5.2 (4.5-10.0) K/mm3 RBC 4.70 (4.2-5.4) M/mm3 Hgb 13.9 (12.0-15.0) g/dL Hct 41.8 (37.0-47.0) % MCV 88.9 (80-100) fl MCH 29.6 (26-34) pg MCHC 33.3 (32-36) g/dl RDW 12.1 (11.5-14.5) % Plt Count 212 (150-375) k/mm3 MPV 10.3 (7.4-10.4) fl Immature Gran % (Auto) 0.4 (0-0.5) % Neut % (Auto) 53.9 (45.5-73.1) % Lymph % (Auto) 34.8 (18.3-44.2) % Cochran % (Auto) 9.5 H (2.6-8.5) % Eos % (Auto) 0.8 (0-4.4) % Baso % (Auto) 0.6 (0.2-1.2) % Lymph # (Auto) 1.79 (0.9-3.2) K/mm3 Cochran # (Auto) 0.5 (0.1-0.6) K/mm3 Eos # (Auto) 0.0 (0-0.3) K/mm3 Baso # (Auto) 0.0 (0.0-0.1) K/mm3 Abs Immat Gran (auto) 0.02 (0.00-0.031) K/mm3 Absolute Neuts (auto) 2.8 (1.3-6.7) K/mm3 Absolute Nucleated RBC 0.000 (0.0-0.012) K/mm3 Nucleated RBC % 0.0 (0.0-0.2) % Sodium 136 L (137-145) mmol/L Potassium 3.7 (3.4-5.0) mmol/L Chloride 101 (98-107) mmol/L Carbon Dioxide 30 (22-30) mmol/L Anion Gap 5 (4-12) mmol/L BUN 13 (7-17) mg/dL Creatinine 0.67 L (0.7-1.0) mg/dL Estim Creat Clear Calc 86 ml/min Estimated GFR > 60 (59 - ) Glucose 92 (65-110) mg/dL Calcium 9.9 (8.4-10.2) mg/dL Total Bilirubin 0.4 (0.2-1.3) mg/dL AST 45 H (14-36) U/L ALT 48 H (6-35) U/L Alkaline Phosphatase 54 (38-126) U/L Total Protein 8.1 (6.3-8.2) g/dL Albumin 4.8 (3.5-5.1) g/dL Lipase 77 (23-300) U/L Urine Color Yellow (Yellow) Urine Appearance Clear (Clear) Urine pH 7.0 (5.0-9.0) Ur Specific Alderson 1.002 (1.001-1.035) Urine Protein Negative (Negative) mg/dL Urine Glucose (UA) Negative (Negative) mg/dL Urine Ketones Negative (Negative) mg/dL Ur Blood (Man) Negative (Negative) Urine Nitrate Negative (Negative) Urine Bilirubin Negative (Negative) Urine Urobilinogen 0.2 (<2.0) mg/dL Leukocyte Esterase Rfl Negative (Negative) CAROL/UL <Nidhi Chawla PA-C - Last Filed: 02/17/25 01:25> Lab Results 02/17/25 02/17/25 Range/Units 00:08 00:32 WBC 5.2 (4.5-10.0) K/mm3 RBC 4.70 (4.2-5.4) M/mm3 Hgb 13.9 (12.0-15.0) g/dL Hct 41.8 (37.0-47.0) % MCV 88.9 (80-100) fl MCH 29.6 (26-34) pg MCHC 33.3 (32-36) g/dl RDW 12.1 (11.5-14.5) % Plt Count 212 (150-375) k/mm3 MPV 10.3 (7.4-10.4) fl Immature Gran % (Auto) 0.4 (0-0.5) % Neut % (Auto) 53.9 (45.5-73.1) % Lymph % (Auto) 34.8 (18.3-44.2) % Cochran % (Auto) 9.5 H (2.6-8.5) % Eos % (Auto) 0.8 (0-4.4) % Baso % (Auto) 0.6 (0.2-1.2) % Lymph # (Auto) 1.79 (0.9-3.2) K/mm3 Cochran # (Auto) 0.5 (0.1-0.6) K/mm3 Eos # (Auto) 0.0 (0-0.3) K/mm3 Baso # (Auto) 0.0 (0.0-0.1) K/mm3 Abs Immat Gran (auto) 0.02 (0.00-0.031) K/mm3 Absolute Neuts (auto) 2.8 (1.3-6.7) K/mm3 Absolute Nucleated RBC 0.000 (0.0-0.012) K/mm3 Nucleated RBC % 0.0 (0.0-0.2) % Sodium 136 L (137-145) mmol/L Potassium 3.7 (3.4-5.0) mmol/L Chloride 101 (98-107) mmol/L Carbon Dioxide 30 (22-30) mmol/L Anion Gap 5 (4-12) mmol/L BUN 13 (7-17) mg/dL Creatinine 0.67 L (0.7-1.0) mg/dL Estim Creat Clear Calc 86 ml/min Estimated GFR > 60 (59 - ) Glucose 92 (65-110) mg/dL Calcium 9.9 (8.4-10.2) mg/dL Total Bilirubin 0.4 (0.2-1.3) mg/dL AST 45 H (14-36) U/L ALT 48 H (6-35) U/L Alkaline Phosphatase 54 (38-126) U/L Total Protein 8.1 (6.3-8.2) g/dL Albumin 4.8 (3.5-5.1) g/dL Lipase 77 (23-300) U/L Urine Color Yellow (Yellow) Urine Appearance Clear (Clear) Urine pH 7.0 (5.0-9.0) Ur Specific Alderson 1.002 (1.001-1.035) Urine Protein Negative (Negative) mg/dL Urine Glucose (UA) Negative (Negative) mg/dL Urine Ketones Negative (Negative) mg/dL Ur Blood (Man) Negative (Negative) Urine Nitrate Negative (Negative) Urine Bilirubin Negative (Negative) Urine Urobilinogen 0.2 (<2.0) mg/dL Leukocyte Esterase Rfl Negative (Negative) CAROL/UL <Frank Long MD - Last Filed: 02/17/25 06:26> Imaging Data Attestation: I personally reviewed and interpreted this imaging study as follows: <Nidhi Chawla PA-C - Last Filed: 02/17/25 01:25> Radiologist's impression: ITS Impressions Abdomen/Pelvis CT 02/17/25 06:15 IMPRESSION: 1. 4 mm stone left kidney. No hydronephrosis. 2. One branch of IUD protrudes/perforates extra serosal. Recommend gynecology consultation. <Nidhi Chawla PA-C - Last Filed: 02/17/25 01:25> ITS Impressions Abdomen/Pelvis CT 02/17/25 06:15 IMPRESSION: 1. 4 mm stone left kidney. No hydronephrosis. 2. One branch of IUD protrudes/perforates extra serosal. Recommend gynecology consultation. <Frank Long MD - Last Filed: 02/17/25 06:26> Discharge Plan Discharge Clinical Impression: Kidney stone on left side <Nidhi Chawla PA-C - Last Filed: 02/17/25 01:25> Patient Disposition: Home <GILBERTO Khanna Last Filed: 02/17/25 01:25> Condition: Stable <GILBERTO Khanna Last Filed: 02/17/25 01:25> Instructions: Antibiotic Form, Kidney Stones (ED), How to Strain Your Urine (ED), Flank Pain (ED) <GILBERTO Khanna Last Filed: 02/17/25 01:25> Additional Instructions: You have a 3 mm left-sided kidney stone. Likely the source of her symptoms. Your labs and urinalysis are unremarkable. Follow-up with your primary care provider and the provided urologist if this is a recurrent issue or causing significant amounts of pain. We have prescribed some medications for pain control. Follow-up and return with any recurrent or emergent concerns. <Nidhi Chawla PA-C - Last Filed: 02/17/25 01:25> Patient Language: Malaysian <Nidhi Chawla PA-C - Last Filed: 02/17/25 01:25> Prescriptions: New acetaminophen [Tylenol Extra Strength] 500 mg tablet 1,000 mg PO TID PRN (Reason: pain) Qty: 30 0RF ketorolac 10 mg tablet 10 mg PO Q8H PRN (Reason: pain) 5 Days Qty: 20 0RF Rx Instructions: maximum total duration of 5 days from all oral, intranasal, or parenteral formulations lidocaine 5 % adhesive patch,medicated 1 patch topical DAILY Qty: 15 0RF Rx Instructions: leave on most painful area for up to 12 hrs No Action cholecalciferol (vitamin D3) 100 mcg (4,000 unit) capsule 100 mcg PO DAILY multivitamin Tablet 1 tablet PO DAILY B-Complex Plus Vit C (calcium) 300 mg-150 mg calcium Tablet 300 tablet PO 1XD melatonin 1 mg Tablet 1 mg PO HS PRN (Reason: Insomnia) glucosamine sulfate 500 mg Capsule 500 mg PO BID Rx Instructions: administer with meals hydrocortisone acetate [Anusol-HC] 25 mg suppository 25 mg RECTAL DAILY PRN (Reason: hemorrhoids) Qty: 12 0RF hydrocortisone acetate [Anusol-HC] 25 mg suppository 25 mg RECTAL DAILY PRN (Reason: hemorrhoids) Qty: 12 0RF buspirone 5 mg tablet See Rx Instructions .ROUTE .COMPLEX Qty: 30 0RF Dose Instruction: Take 1 Tablet (5 mg) by mouth nightly as needed for anxiety. Rx Instructions: Take 1 Tablet (5 mg) by mouth nightly as needed for anxiety. <Nidhi Chawla PA-C - Last Filed: 02/17/25 01:25> Follow-up/Referrals: Patrica Santos MD [Primary Care Provider, Family Practice] Emmanuel Zarate MD [Physician, Urology] - 1 Week Referral Note: Kidney stone <Nidhi Chawla PA-C - Last Filed: 02/17/25 01:25> Stand Alone Forms: Work/School Release IP <Nidhi Chawla PA-C - Last Filed: 02/17/25 01:25> Time of Disposition: 04:41 <Nidhi Chawla PA-C - Last Filed: 02/17/25 01:25> 04:41 <Frank Long MD - Last Filed: 02/17/25 06:26>
[2025-02-17] MEDS: MORPHINE SULFATE (*CRX) 4 MG/ML INJ IV PUSH (04:20)
[2025-02-17] MEDS: ONDANSETRON INJ 4 MG/2 ML VIAL IV PUSH (04:21)
[2025-02-17 05:11] VITALS: BP 101/60; PULSE 45; RESP 18; O2SAT 100
[2025-02-17 07:51] LABS: Estimated CRCL calculation 73 ml/min; Estimated Glomerular Filt Rate > 60
== END 2025-02-17 05:12 | disposition home or self-care (01) ==
PROVIDERS: Student in an Organized Health Care Education/Training Program; Emergency Provider Physician Assistant; PCP Family Medicine
DX: N20.0 Calculus of kidney (principal); E21.3 Hyperparathyroidism, unspecified; Z90.722 Acquired absence of ovaries, bilateral; Z90.79 Acquired absence of other genital organ(s); T83.39XA Other mechanical complication of intrauterine contraceptive device, initial encounter; Y84.8 Other medical procedures as the cause of abnormal reaction of the patient, or of later complication, without mention of misadventure at the time of the procedure
CPT/HCPCS: 36415; 74177; 80053; 81003; 83690; 85025; 96374; 96375; 99284; J2270; J2405; Q9967